=== PATIENT | female | born 1980 | race Caucasian/White ===

== ENCOUNTER 2019-09-15 08:32 | Outpatient (CLI) | payer BC, SELFPAY ==
--- NOTE | 2019-09-15 08:49 | US_ITS ---
WS: [id number] ULTRASOUND BREAST BILATERAL TECHNIQUE: Ultrasound bilateral breast focused area of concern. CLINICAL INFORMATION: BREAST LUMP ON L SIDE AT 5 O'CLOCK POSITION COMPARISON: April 15, 2018 FINDINGS: Bilateral breast ultrasound. Entire breast evaluated. Again seen are numerous bilateral breast cysts throughout both breasts. The largest right-sided cyst at the 11:00 position 2 cm from the nipple measuring 1.9 x 1.0 x 1.7 CM. Largest left-sided cyst at the 12:00 position measures 4.1 x 1.3 x 3.1 CM. Cysts have a benign appear ance. No pathologic lesions to target for biopsy. US/US breast BI limited* [id number] IMPRESSION: BI-RADS 2 benign Follow up: Age 42 Recommend annual screening mammography age 40
== END 2019-09-15 08:33 | disposition home or self-care (01) ==
PROVIDERS: PCP Nurse Practitioner Family; Visit Provider Surgery
DX: N63.23 Unspecified lump in the left breast, lower outer quadrant (principal); N60.02 Solitary cyst of left breast; N60.01 Solitary cyst of right breast
CPT/HCPCS: 76642

== ENCOUNTER → 2019-12-28 00:01 | Outpatient (BNVA) | payer BC, SELFPAY | PROVIDERS: PCP Nurse Practitioner Family; Referring Provider Nurse Practitioner Family; Visit Provider Nurse Practitioner Family | DX: Z20.828 Contact with and (suspected) exposure to other viral communicable diseases (principal) | CPT/HCPCS: 87635 ==

== ENCOUNTER 2020-02-20 09:49 | Outpatient (CLI) | payer BC, SELFPAY ==
--- NOTE | 2020-02-20 | XRR_ITS ---
PROCEDURE INFORMATION: Exam: XR Chest, 2 Views Exam date and time: 02/20/2020 10:05 AM Age: 39 years old Clinical indication: Chest pain; Type not specified; Patient HX: Pain wo trauma x2 months, PT denies HX of CA, PT denies HX of smoking TECHNIQUE: Imaging protocol: XR of the chest Views: 2 views. COMPARISON: No relevant prior studies available. FINDINGS: Lungs: Hyperinflation, without acute airspace disease. Pleural space: No pleural effusion. Heart/Mediastinum: Normal configuration of the heart. Bones/joints: Mild scoliosis and degenerative change. XR/XR chest 2V* [id number] IMPRESSION: Hyperinflation, without acute airspace or pleural disease.
== END 2020-02-20 09:50 | disposition home or self-care (01) ==
PROVIDERS: PCP Nurse Practitioner Family; Visit Provider Nurse Practitioner Family
DX: R07.89 Other chest pain (principal)
CPT/HCPCS: 71046

== ENCOUNTER → 2021-05-01 12:02 | Outpatient (BNVA) | payer BC, SELFPAY | PROVIDERS: PCP Nurse Practitioner Family; Referring Provider Nurse Practitioner Family; Visit Provider Nurse Practitioner Family | DX: B94.8 Sequelae of other specified infectious and parasitic diseases (principal); R53.83 Other fatigue | CPT/HCPCS: 80053; 84443; 85025 ==

== ENCOUNTER 2022-07-19 09:10 | Outpatient (CLI) | payer BC, SELFPAY ==
--- NOTE | 2022-07-19 09:21 | XR_ITS ---
WS: [id number] Chest 2 views, 07/19/2022 Clinical Data: HYPERINFLATION OF LUNGS/DISCOMFORT IN CHEST Comparison: PA and lateral chest, 02/20/2020. Findings: No nodules, masses or effusions are seen. The heart is normal. The pulmonary vascularity is not increased. No pneumonia or pneumothorax is seen. The diaphragms are flattened. XR/XR chest 2V* [id number] Impression: Hyperinflation.
== END 2022-07-19 09:11 | disposition home or self-care (01) ==
LOC: RAD 09:12
PROVIDERS: PCP Nurse Practitioner Family; Visit Provider Nurse Practitioner Family
DX: R09.89 Other specified symptoms and signs involving the circulatory and respiratory systems (principal); R07.89 Other chest pain
CPT/HCPCS: 71046

== ENCOUNTER → 2022-09-17 12:47 | Outpatient (BNVA) | payer BC, SELFPAY | PROVIDERS: PCP Nurse Practitioner Family; Visit Provider Emergency Medicine | DX: R10.9 Unspecified abdominal pain (principal); R10.13 Epigastric pain | CPT/HCPCS: 81000 ==

== ENCOUNTER 2022-09-19 13:35 | Outpatient (CLI) | payer BC, SELFPAY ==
[2022-09-19] MEDS: iohexol 350 mg/mL 500 mL Btl (per mL) PO (14:48)
--- NOTE | 2022-09-19 15:00 | CT_ITS ---
WS: [id number] CT ABDOMEN AND PELVIS WITH CONTRAST HISTORY: R10.13 - Epigastric pain TECHNIQUE: Imaging performed of the abdomen and pelvis with IV contrast. Single phase imaging of the abdomen. Coronal and sagittal reformats are submitted. All CT scans at [facility] use at [address] one of these dose optimization techniques: automated exposure control; mA and/or kV adjustment per patient size (includes targeted exams where dose is matched to clinical indication); or iterative re construction. IV CONTRAST: Omnipaque 350; 95 mL IV. Oral contrast: Yes. DLP: 282.09 mGy.cm COMPARISON: None available. Lower thorax: Lung bases are clear. Heart is normal size. No hiatal hernia. Liver/biliary system: Normal size with no intrahepatic dilatation. Gallbladder: Normal. No gallstones or wall thickening. No pericholecystic fluid. Pancreas: Poorly visualized due to body habitus. No abnormality identified. Spleen: Normal size spleen. No mass or infarct. Adrenal glands: Normal. Right kidney: Normal. Left kidney: Normal. Aorta: Normal. Lymphadenopathy: None. Free fluid: None. GI tract: Unremarkable. Abdominal wall: Unremarkable abdominal wall. No hernia. Pelvis: Anteverted uterus. There is thickening and nodularity in the central endometrium. Mild thicke edwardo and nodularity within the endometrium needs to be further evaluated by ultrasound. Bones: Negative. CT/CT abdomen pelvis w con* [id number] IMPRESSION: 1. No acute abdominal or pelvic abnormalities are identified. 2. Thickening and nodularity of the endometrium needs to be further evaluated. Recommend transvaginal pelvic ultrasound imaging.
[2022-09-19] MEDS: iohexol 350 mg/mL 500 mL Btl (per mL) IV (15:05)
== END 2022-09-19 13:36 | disposition home or self-care (01) ==
LOC: RAD 13:39
PROVIDERS: PCP Nurse Practitioner Family; Visit Provider Emergency Medicine
DX: R10.13 Epigastric pain (principal); R93.89 Abnormal findings on diagnostic imaging of other specified body structures
CPT/HCPCS: 74177; Q9967

== ENCOUNTER → 2024-05-26 09:37 | Outpatient (BNVA) | payer BC, SELFPAY | PROVIDERS: PCP Nurse Practitioner Family; Visit Provider Nurse Practitioner Family | DX: J01.90 Acute sinusitis, unspecified (principal); B34.9 Viral infection, unspecified | CPT/HCPCS: 87400; 87426 ==

== ENCOUNTER 2025-04-08 14:37 | Outpatient (CLI) | payer BC, SELFPAY ==
--- NOTE | 2025-04-08 14:46 | XR_ITS ---
WS: [id number] Chest 2 views, 04/08/2025 Clinical Data: CHRONIC COUGH Comparison: Two-view chest, 07/19/2022 Findings: No nodules, masses or effusions are seen. The heart is normal. The pulmonary vascularity is not increased. No pneumonia or pneumothorax is seen. The diaphragms are flattened. XR/XR chest 2V* [id number] Impression: Hyperinflation.
== END 2025-04-08 14:38 | disposition home or self-care (01) ==
PROVIDERS: PCP Nurse Practitioner Family; Visit Provider Nurse Practitioner Family
DX: J98.8 Other specified respiratory disorders (principal)
CPT/HCPCS: 71046